=== PATIENT | male | born 1940 | race Caucasian/White ===

== ENCOUNTER 2025-02-26 16:10 | Emergency (ER) | payer OTHER, SELFPAY ==
[2025-02-26 16:12] VITALS: BP 122/67
--- NOTE | 2025-02-26 17:29 | EDRN ---
Pt states he arrives for R lower back pain that radiates into R buttocks. Increased pain w/ movement. Pt states he had pain for first time when in bed. Pt has had pain for about a week. Pt had 2 epidurals in July and February 01. Pt states pain
reduced x 2 weeks then got bad. Pt at this time has no pain. Pt states pain w/ movement 10/10. Pt had MRI done that showed changes in lower back described by pt as 'messed up' with some stenosis. Pt has had back pain for awhile but it became extreme
in the past week. Pt has also been on steriods that helped in the recent past.
[2025-02-26 17:34] VITALS: BMI 25.0
[2025-02-26 17:36] VITALS: BP 130/70
--- NOTE | 2025-02-26 17:39 | EDRN ---
Dr. Blevins in room w/ pt at this time.
[2025-02-26] MEDS: NORCO 5/325 2 TABLET PO (18:37)
[2025-02-26] MEDS: DELTASONE 50 MG PO (18:37)
[2025-02-26 18:40] VITALS: BP 138/75
--- NOTE | 2025-02-26 19:32 | ED.GENMED ---
History of Present Illness
General
Chief Complaint: Back Pain
Source: patient and family
Time Seen by Provider: 02/26/25 17:31
History of Present Illness
History of Present Illness:
Note:
CHIEF COMPLAINT(S)
Severe back pain.
HISTORY OF PRESENT ILLNESS
The patient is an 84-year-old male with a history of back pain who presented with a chief complaint of severe back pain. The pain initially started about a year ago, and the patient received an epidural injection on August 04, which was
effective. In early January, the pain became pronounced on the right side, leading to another injection on February 01, which provided temporary relief for about a week. The pain has worsened in the past week, causing significant discomfort even during
sleep. The pain is primarily located at the base of the spine and extends to the upper right buttock. The patient describes the current pain as an exacerbation of the same quality as previous episodes but significantly worse. He is currently using
Advil and Aleve with minimal relief. The patient also reports difficulty with urination due to hip pain, experiences constipation intermittently, but denies any urinary or bowel incontinence.
ADDITIONAL HISTORY OBTAINED FROM SOURCES OTHER THAN THE PATIENT
The patient provided an MRI report from the [facility], dated December 2023, which revealed multi-level lumbar spondylosis with severe spinal canal stenosis at L4-L5 and L5-S1.
PAST MEDICAL AND SURGICAL HISTORY
The patient denies any past surgical history.
EXTERNAL RECORDS REVIEWED
The MRI report from the [facility].
SOCIAL HISTORY
The patient denies smoking or alcohol use.
PHYSICAL EXAM
General: Alert, no acute distress.
Skin: Warm, dry.
Head: Normocephalic, atraumatic.
Neck: Supple, trachea midline.
Eyes, ears, nose, mouth, and throat: Oral mucosa moist.
Cardiovascular: Normal peripheral perfusion, no edema.
Respiratory: Respirations are non-labored.
Gastrointestinal: Abdomen nondistended.
Back: Pain reported in the right buttocks, deep tenderness but no midline tenderness of the lumbar spine.
Musculoskeletal: Slow range of motion due to mild pain.
Neurological: No clonus, normal deep tendon reflexes in the lower extremities, alert and oriented.
Psychiatric: Cooperative, appropriate mood and affect.
PROBLEM LIST
Acute:
- Exacerbation of chronic back pain
- Lumbar spinal stenosis
PLAN
1. Initiate pain management with medication.
2. Administer a course of steroids to address inflammation.
3. Conduct plane X-rays to assess current spinal condition and rule out any acute bone pathology.
4. Follow-up with pain management and potential consideration of surgical options if conservative measures fail.
DIFFERENTIAL DIAGNOSIS
The Differential Diagnosis includes, in no particular order and is not limited to:
1. Lumbar spinal stenosis
2. Herniated disc
3. Spinal osteoarthritis
4. Muscle strain or sprain
5. Compression fracture
6. Sciatica
7. Cauda equina syndrome
8. Peripheral neuropathy
9. Sacroiliac joint dysfunction
10. Vertebral metastasis
Disposition:
SUMMARY OF ENCOUNTER
An 84-year-old male with a history of long-standing back pain and lumbar radiculopathy presented with worsening of his condition. He has been previously seen by spine surgery and is currently followed by pain management. Upon examination, the
patient appeared well and had no evidence of upper or lower motor neuron disease, with normal reflexes and strength. X-rays showed advanced degenerative changes. Pain management included the administration of medications for pain control and a trial
of steroids, which have been effective in the past. The patient and his son-in-law were advised of reasons for returning to the emergency department and agreed with the management plan.
ASSESSMENT
Exacerbation of chronic back pain with lumbar radiculopathy.
PLAN
Control pain with medication and initiate a trial of steroids. The patient is advised to follow up with his spine surgeon and pain management doctor this week.
MEDICAL DECISION MAKING
-Complexity of Data Reviewed: Chronic conditions affecting care include lumbar radiculopathy and long-standing back pain. Differential diagnosis considers lumbar spinal stenosis, herniated disc, spinal osteoarthritis, muscle strain or sprain,
compression fracture, sciatica, cauda equina syndrome, peripheral neuropathy, sacroiliac joint dysfunction, and vertebral metastasis.
-Data:
Category 1
External record reviewed: MRI report from the [facility].
The following testing was considered, but ultimately not selected after discussion with patient/family.
Category 2
Clinical information was obtained from an independent historian.
-Risk:
Prescription medication was prescribed, including a trial of steroids for inflammation control.
Consideration of Admission/Observation: Escalation of care including admission/observation was considered given the complexity and risk of the patients presenting complaint, exam findings, and/or their underlying comorbidities. However, ultimately
it is felt the patient is safe for outpatient management with close follow-up. Reasoning: Work-up is reassuring, does not reveal any acute life/organ-threatening processes, patients symptoms well controlled upon reevaluation, reexamination is
reassuring, vitals are stable, and patient is agreeable with discharge and reliable for follow-up.
DIAGNOSIS
Exacerbation of chronic back pain with lumbar radiculopathy (M54.16).
Phy Exam
Physical Exam
Physical Exam:
.
Course
Orders/Labs/Results
Orders:
Orders
02/26/25 17:57
Hydrocodone 5/APAP 325 [[place] 5/325] 2 tablet PO NOW STA
Prednisone [Deltasone] 50 mg PO NOW STA
Lumbar Spine, 2 or 3 View [CR Lumbar Spine 2 Or 3 Views] Urgent
Comment:
Reason For Exam: nontraumatic back pain
Vital Signs
Initial and Last Documented VS:
Initial Vital Signs
Temp Pulse Resp BP Pulse Ox
98.0 F 70 20 122/67 96
02/26/25 16:12 02/26/25 16:12 02/26/25 16:12 02/26/25 16:12 02/26/25 16:12
Last Documented Vital Signs
Temp Pulse Resp BP Pulse Ox
98.0 F 62 16 141/76 99
02/26/25 16:12 02/26/25 20:28 02/26/25 20:28 02/26/25 20:28 02/26/25 20:28
*Pulse Oximetry
SaO2: 98
Oxygen Mode of Delivery: Room air
Patient hypoxic: no
*Critical Care Note
Total Time (30-74mins, 75-104mins- exclusive of procedures): Not Applicable
ED Attending Note
-
Portions of this chart may have been created with voice recognition software.� Occasional wrong word or��sound alike� substitutions may have occurred due to the inherent limitations of voice recognition software.
Discharge Plan
Departure
Patient Disposition: Home (Routine Discharge)
Date of Disposition: 02/26/25
Time of Disposition: 19:32
Patient with high blood pressure during this ER visit?: No
Discharge Problem:
Acute lumbar radiculopathy
Instructions: Low Back Pain (DC), Radiculopathy (DC)
Prescriptions:
New
hydrocodone-acetaminophen 5-325 mg tablet
2 tab PO Q6H PRN (Reason: Pain) Qty: 15 0RF
prednisone 10 mg Tablet
See Rx Instructions .ROUTE .COMPLEX Qty: 45 0RF
Rx Instructions:
Take By Mouth:
50 mg daily x3 days, 40 mg daily x3 days,
30 mg daily x3 days, 20 mg daily x3 days,
10 mg daily x3 days
Referrals:
Miguelito Dutta MD [Family Provider]
Activity Restrictions/Additional Instructions:
Please your pain doctor and/or bed control specialist in the next 1 week for follow-up and re-evaluation.
Return immediately for leg weakness, bowel or bladder incontinence, fevers, worsening pain or any other concerns.
Interventions
Interventions:
*Risk Screen - Suicide Last Done: 02/26/25 17:34
*General Assessment Last Done: 02/26/25 16:12
*Neglect/Abuse Screening Last Done: 02/26/25 17:34
*ED- Fall Risk Assessment Last Done: 02/26/25 17:34
*ED COVID-19 Vaccine History Last Done: 02/26/25 17:34
*Nursing Disposition Last Done: 02/26/25 20:30
ED-Musculoskeletal Assessment Last Done: 02/26/25 17:38
Discharge Date and Time
Discharge Date/Time: 02/26/25 20:30
Print Language: KENYAN
[2025-02-26 20:28] VITALS: BP 141/76
== END 2025-02-26 20:30 | disposition home or self-care (01) ==
LOC: EMR 16:10
PROVIDERS: EMERGENCY PHYSICIAN Emergency Medicine; FAMILY PHYSICIAN Internal Medicine
DX: M47.27 Other spondylosis with radiculopathy, lumbosacral region (principal); M48.07 Spinal stenosis, lumbosacral region
CPT/HCPCS: 99283; 72100

== ENCOUNTER 2025-04-22 13:59 | Emergency (ER) | payer OTHER, SELFPAY ==
[2025-04-22 14:00] VITALS: BP 141/89
--- NOTE | 2025-04-22 15:05 | ED.GENMED ---
History of Present Illness
General
Chief Complaint: Bowel Problem
Time Seen by Provider: 04/22/25 14:03
History of Present Illness
History of Present Illness:
84-year-old male who presents to the emergency department for evaluation of constipation. He is on chronic opiates to the back pain, plan for a surgical procedure next week. Has been taking MiraLAX and milk of magnesia without relief. Still
passing liquid stool and flatus
Review of Systems
Review of Systems
Allergies reviewed?: Yes
All Other Systems: ROS reviewed and negative except as documented in HPI and ROS
Phy Exam
Physical Exam
Physical Exam:
GEN: Well appearing, NAD, WDWN
HEENT: Oral mucosa moist, no scleral icterus
Cardiac: Regular rate
Lung: No respiratory distress, no tachypnea
Rectal: Firm impacted stool in the rectal vault
MSK: No gross deformity or injuries
Skin: Good color, no pallor or jaundice, no rashes
Neuro: AO x3, moves all extremities freely
Psych: Calm, cooperative
Course
Orders/Labs/Results
Orders:
Orders
04/22/25 14:52
Enema- Treatment ONCE
Type: Milk of Molasses
04/22/25 16:43
Magnesium Citrate [Citroma] 300 ml PO ONCE ONE
Vital Signs
Initial and Last Documented VS:
Initial Vital Signs
Temp Pulse Resp BP Pulse Ox
98.4 F 100 18 141/89 96
04/22/25 14:00 04/22/25 14:00 04/22/25 14:00 04/22/25 14:00 04/22/25 14:00
Last Documented Vital Signs
Temp Pulse Resp BP Pulse Ox
98.4 F 101 15 140/86 98
04/22/25 14:00 04/22/25 16:34 04/22/25 16:34 04/22/25 16:34 04/22/25 16:34
MDM/Problems Addressed
MDM/Problems Addressed:
Patient was disimpacted at the bedside with multiple enemas thereafter with good results. Bowel regimen discussed with the patient. Also provided with magnesium citrate for home use
*Pulse Oximetry
SaO2: 96
Oxygen Mode of Delivery: Room air
Patient hypoxic: no
*Critical Care Note
Total Time (30-74mins, 75-104mins- exclusive of procedures): Not Applicable
ED Attending Note
-
Portions of this chart may have been created with voice recognition software.� Occasional wrong word or��sound alike� substitutions may have occurred due to the inherent limitations of voice recognition software.
Discharge Plan
Departure
Patient Disposition: Home (Routine Discharge)
Date of Disposition: 04/22/25
Time of Disposition: 16:42
Patient with high blood pressure during this ER visit?: No
Discharge Problem:
Fecal impaction
Instructions: Fecal Impaction (DC)
Prescriptions:
No Action
hydrocodone-acetaminophen 5-325 mg tablet
2 tab PO Q6H PRN (Reason: Pain) Qty: 15 0RF
prednisone 10 mg Tablet
See Rx Instructions .ROUTE .COMPLEX Qty: 45 0RF
Rx Instructions:
Take By Mouth:
50 mg daily x3 days, 40 mg daily x3 days,
30 mg daily x3 days, 20 mg daily x3 days,
10 mg daily x3 days
Referrals:
Eusebio Pulido MD [Active, Neurology]
Activity Restrictions/Additional Instructions:
Miralax 17g (one capful) daily
Colace 100mg with each meal
Dulcolax twice daily as needed for constipation
Use magnesium citrate tonight for further laxative benefit
Interventions
Interventions:
*Risk Screen - Suicide Last Done: 04/22/25 14:00
*General Assessment Last Done: 04/22/25 14:00
*Neglect/Abuse Screening Last Done: 04/22/25 14:00
*Nursing Disposition Last Done: 04/22/25 17:19
KW-Idmuti-Gcxdgddnbu Assessment Last Done: 04/22/25 14:45
Discharge Date and Time
Discharge Date/Time: 04/22/25 17:19
Print Language: MEXICAN
[2025-04-22 16:34] VITALS: BP 140/86
[2025-04-22] MEDS: CITROMA 300 ML PO (16:46)
== END 2025-04-22 17:19 | disposition home or self-care (01) ==
LOC: EMR 13:59
PROVIDERS: EMERGENCY PHYSICIAN Emergency Medicine; FAMILY PHYSICIAN Internal Medicine
DX: K56.41 Fecal impaction (principal); Z79.891 Long term (current) use of opiate analgesic
CPT/HCPCS: 99283

== ENCOUNTER 2025-05-23 08:57 | Emergency (ER) | payer OTHER, SELFPAY ==
--- NOTE | 2025-05-23 09:01 | ED.GENMED ---
History of Present Illness
General
Chief Complaint: Fall
Source: patient and ambulance crew
Exam Limitations: none
Time Seen by Provider: 05/23/25 08:59
Nursing documentation reviewed up to this point in time: agreed with
History of Present Illness
History of Present Illness:
84-year-old male with history as noted presents to the ER for evaluation after a fall. Patient says that he got up to use the restroom' next thing I know him on the ground.' He thinks he may have passed out but he is not completely sure. He
denies any preceding lightheadedness, chest pain, shortness of breath, palpitations. He did strike his head on the ground. He complains of some pain in the back of his head. He denies any neck pain. He denies any back pain. He denies any chest
or abdominal pain or pain in his extremities. He does make note that initially he felt weak/clumsy in both arms after the fall but this seems to have improved he says. Denies any numbness in the upper extremities. He denies being on blood
thinners.
Review of Systems
Review of Systems
All Other Systems: ROS reviewed and negative except as documented in HPI and ROS
Constitutional: Denies fever
Respiratory: Denies trouble breathing
Cardiac: Reports syncope; Denies chest pain
ABD/GI: Denies abdominal pain, nausea or vomiting
: Denies flank pain
Musculoskeletal: Denies joint pain, neck pain or back pain
Neurological: Reports headache and weakness; Denies numbness
Phy Exam
Physical Exam
Physical Exam:
General: Awake, alert, oriented x3; no acute distress
Head: Normocephalic, patient has small laceration approximately 2 cm occipital scalp
Eyes: Conjunctiva normal, EOMI
Throat: Airway intact, handling secretions
Neck: Trachea midline, cervical collar in place, no midline cervical tenderness
Lungs: Clear to auscultation bilaterally, no wheezing, rales, rhonchi
Heart: Regular rate and rhythm, no murmurs, gallops, or rubs; no chest wall bruising or tenderness
Abd: Soft, non distended, nontender
Back: No signs of trauma the back or flank and no tenderness in thoracic or lumbar spine
Neuro: Cranial nerves intact, speech fluid, on exam of the upper extremities his plasma processor strength is intact and symmetric bilaterally, proximal strength slightly decreased right compared to left with 4+/5 strength right versus 5/5 in the left; motor
and sensory is intact and symmetric proximally and distally in the lower extremities
Skin: Scalp abrasion no other signs of acute trauma
Extremities: Atraumatic, no tenderness, no edema in extremities, equal pulses in all extremities
Scores
Heart Failure Risk
Heart Failure Risk Score: Not Applicable
Heart Score for Chest Pain Patients
STEMI patient?: Not applicable
Withdrawal Assessment of Alcohol
Withdrawal Assessment Completed?: Not applicable
Course
Orders/Labs/Results
Orders:
Orders
05/23/25 09:00
Electrocardiogram (*1) Urgent
Reason for Study: Syncope
CT Cervical Spine W/o Iv Contr Urgent
Comment:
Reason For Exam: fall with head strike, arm weakness
CT Head W/o Iv Contrast Urgent
Comment:
Reason For Exam: fall with head strike, arm weakness
EKG- Treatment ONCE
05/23/25 09:12
Tetanus/Diphth/Acelpertussis [Adacel] 0.5 ml IM .ONCE ONE
05/23/25 09:18
Complete Blood Count/With Diff Urgent
Comprehensive Metabolic Panel Urgent
Troponin I Urgent
05/23/25 10:48
Lidocaine/Epinephrine/Tetracai [Let Topical Anesthetic Gel] 3 ml .ROUTE .STK-MED ONE
Abnormal Lab Results
05/23/25
09:18
RBC 3.58 L 10^6/uL
(4.70-6.10)
Hgb 11.7 L g/dL
(13.0-18.0)
Hct 35.8 L %
(39.0-52.0)
MCV 100.0 H fL
(80.0-94.0)
MCH 32.7 H pg
(27.0-31.0)
MCHC 32.7 L g/dL
(33.0-37.0)
Absolute Neuts (auto) 8.3 H 10^3/uL
(1.4-6.5)
Absolute Monos (auto) 0.8 H 10^3/uL
(0.1-0.6)
Neutrophils % 77.2 H %
(42.2-75.2)
Lymphocytes % 12.1 L %
(20.5-51.1)
Sodium 134 L mmol/L
(135-145)
BUN 25 H mg/dl
(9-20)
Glucose 150 H mg/dl
(70-99)
05/23/25 09:18
05/23/25 09:18
Vital Signs
Initial and Last Documented VS:
Initial Vital Signs
Temp Pulse Resp BP Pulse Ox
36.4 C 55 12 138/63 100
05/23/25 09:09 05/23/25 09:09 05/23/25 09:09 05/23/25 09:09 05/23/25 09:09
Last Documented Vital Signs
Temp Pulse Resp BP Pulse Ox
36.4 C 58 10 113/95 99
05/23/25 09:09 05/23/25 10:15 05/23/25 10:15 05/23/25 10:00 05/23/25 10:15
Procedures
Laceration Closure
Scalp:
Status of Wound: clean
Size of Wound in cm: 2
Description of Wound Edges: ragged
Preparation: cleaned with saline
Anesthesia: Topical-LET
Revision/Debridement: routine- no revision
Type of Closure: single layer closure
Skin Closure Material: skin colby
Number of sutures: 2
MDM/Problems Addressed
Differential Diagnosis Includes:
Fall: Traumatic head injury including subdural hemorrhage, subarachnoid hemorrhage, etc; cervical spine injury
Arm weakness: Cervical spine injury, CVA less likely as patient reports bilateral symptoms, clumsiness/weakness may also been result of increased adrenaline after fall
Syncope: Vasovagal, orthostatic, anemia, dehydration, dysrhythmia, valvular disease
MDM/Problems Addressed:
84-year-old male presents for evaluation after a fall and questionable syncope�he says he stood up to go to the bathroom and fell to the ground but does not remember the fall thinks he may have passed out. Vitals and exam are as above. Plan to
check labs including a CBC and a CMP. Will check an EKG. Check CT of the head and cervical spine. Fortunately no other serious injuries. Maintain cervical spine precautions as he did report some weakness in the arms after the fall improving but
not resolved. Reassess after the above.
Labs reviewed: CBC shows marginal anemia, CMP no clinically significant abnormalities. Troponin undetectable. CT of the head negative for any acute abnormalities. CT of the cervical spine showed no fractures but note was made of enlargement of
the posterior dentate transverse ligament with compression of the upper cord. Discussed with radiologist would not classically be true posttraumatic but theoretically could be hematoma in this area. Reassessment he still does have right greater
than left weakness in the arms not resolved since the fall. Concern for cervical spine injury will maintain cervical collar. Lower suspicion that this is a stroke as he has no other neurologic deficits, no weakness in the legs and he feels
symptoms bilaterally in the arms; furthermore would not be candidate for tenecteplase with his recent spinal surgery. Overall I think concern for posttraumatic injury is higher, transfer to trauma center for further assessment is appropriate.
Discussed with patient and family and he prefers to go to [facility] as he had [place].
Discussed with trauma physician Dr. Stern at [facility]--accepted for transfer. Will monitor pending transport, maintain cervical spine precautions in the meantime.
*Pulse Oximetry
SaO2: 99
Oxygen Mode of Delivery: Room air
Patient hypoxic: no (99%)
*EKG
Interpreted by ED Provider?: Yes
Heart Rate: 54
Rate: bradycardiac
Rhythm: sinus
[place]: normal axis
Interval: long QT
QRS Pattern: right bundle branch block
Ischemia: no ischemia
*Critical Care Note
Total Time (30-74mins, 75-104mins- exclusive of procedures): Not Applicable
Data Reviewed
Source: patient, records and ambulance crew
Patient Management
Discussion with other providers: [employer] (Discussed with trauma surgeon at [facility]) and Radiologist (Discussed with radiologist)
Escalation/DeEscalation of care consider admission/obs:
Transfer to trauma center
ED Attending Note
-
Portions of this chart may have been created with voice recognition software.� Occasional wrong word or��sound alike� substitutions may have occurred due to the inherent limitations of voice recognition software.
Discharge Plan
Departure
Patient Disposition: Acute Care Hospital
Date of Disposition: 05/23/25
Time of Disposition: 10:50
Discharge Problem:
Bilateral arm weakness, Syncope
Prescriptions:
No Action
hydrocodone-acetaminophen 5-325 mg tablet
2 tab PO Q6H PRN (Reason: Pain) Qty: 15 0RF
prednisone 10 mg Tablet
See Rx Instructions .ROUTE .COMPLEX Qty: 45 0RF
Rx Instructions:
Take By Mouth:
50 mg daily x3 days, 40 mg daily x3 days,
30 mg daily x3 days, 20 mg daily x3 days,
10 mg daily x3 days
Hospital Transfer
Other hospital: [facility]
I certify that the patient requires transfer: Yes
Discussed case with accepting physician: Dr. Stern
Reason for transfer: higher level of care and specialties available
Interventions
Interventions:
*Risk Screen - Suicide Last Done: 05/23/25 09:08
*General Assessment Last Done: 05/23/25 09:22
*Neglect/Abuse Screening Last Done: 05/23/25 09:08
*ED- Fall Risk Assessment Last Done: 05/23/25 09:09
*ED COVID-19 Vaccine History Last Done: 05/23/25 09:08
*ED Influenza Vaccine History Last Done: 05/23/25 09:08
ED-Musculoskeletal Assessment Last Done: 05/23/25 09:24
ED- Neurological Assessment Last Done: 05/23/25 09:22
ED-Skin Assessment Last Done: 05/23/25 09:22
Discharge Date and Time
Print Language: BELGIAN
[2025-05-23 09:08] VITALS: BMI 31.5
[2025-05-23 09:09] VITALS: BP 138/63
--- NOTE | 2025-05-23 09:23 | EDRN ---
Sl rt arm drift
[2025-05-23 09:25] LABS: Hematocrit 35.8 % (39.0-52.0); Hemoglobin 11.7 g/dL (13.0-18.0); Mean Corp Hgb Conc. 32.7 g/dL (33.0-37.0); Mean Corpuscular Volume 100.0 fL (80.0-94.0); Nucleated Red Blood Cells % 0 % (-); Platelet Count 285 10^3/uL (130-400); Red Cell Dist. Width 12.6 % (11.5-14.5)
[2025-05-23 09:50] LABS: ALT (SGPT) 34 U/L (0-50); AST (SGOT) 29 U/L (17-59); Albumin 3.9 g/dl (3.5-5.0); Alkaline Phosphatase 95 U/L (38-126); Blood Urea Nitrogen 25 mg/dl (9-20); Calcium 9.3 mg/dl (8.4-10.2); Carbon Dioxide 27 mmol/L (22-30); Chloride 103 mmol/L (98-107); Estimated Creatinine Clearance 67 ml/min; Glucose 150 mg/dl (70-99); Potassium 4.5 mmol/L (3.5-5.1); Sodium 134 mmol/L (135-145); Total Protein 6.4 g/dl (6.3-8.2); eGFR > 60.00
[2025-05-23 09:57] LABS: Troponin I < 0.012 ng/ml
[2025-05-23 10:00] VITALS: BP 113/95
[2025-05-23] MEDS: ADACEL 0.5 ML IM (10:24)
== END 2025-05-23 12:03 | disposition short-term general hospital (02) ==
LOC: EMR 08:57
PROVIDERS: EMERGENCY PHYSICIAN Emergency Medicine; FAMILY PHYSICIAN Internal Medicine
DX: R53.1 Weakness (principal); R55 Syncope and collapse; S01.01XA Laceration without foreign body of scalp, initial encounter; W19.XXXA Unspecified fall, initial encounter; I45.10 Unspecified right bundle-branch block; Z23 Encounter for immunization
CPT/HCPCS: 12001; 99284; 90471; 70450; 72125; 80053; 84484; 85025; 90715; 93005